=== PATIENT | male | born 1950 | race Caucasian/White ===

== ENCOUNTER → 2018-05-22 | Outpatient (REF) | payer MEDICARE, BC, OTHER ==
[2018-05-22 14:18] LABS: FREE T4 0.91 NG/DL (0.76-1.46); RHEUMATOID FACTOR QUANT < 10.0 IU/ML (<15.0); TOTAL PROTEIN 7.3 GM/DL (6.4-8.2)
[2018-05-22 14:19] LABS: ERYTHROCYTE SEDIMENTATION RATE 5 mm/hr (0-20)
[2018-05-22 14:27] LABS: ESTIMATED AVERAGE GLUCOSE 137 MG/DL (60-110); HEMOGLOBIN A1c 6.4 %
[2018-05-22 17:42] LABS: FOLATE 16.8 NG/ML
[2018-05-23 15:17] LABS: ALBUMIN 4.35 GM/DL (3.29-5.55); ALBUMIN % 59.6 % (55.8-66.1); ALPHA-1-GLOBULIN % 4.4 % (2.9-4.9); ALPHA-1-GLOBULINS 0.32 GM/DL (0.17-0.41); ALPHA-2-GLOBULINS 0.85 GM/DL (0.42-0.99); ALPHA-2-GLOBULINS % 11.7 % (7.1-11.8); BETA-1-GLOBULINS 0.47 GM/DL (0.28-0.60); BETA-1-GLOBULINS % 6.4 % (4.7-7.2); BETA-2-GLOBULINS 0.42 GM/DL (0.19-0.55); BETA-2-GLOBULINS % 5.8 % (3.2-6.5); GAMMA GLOBULIN % 12.1 % (11.1-18.8); GAMMA GLOBULINS 0.88 GM/DL (0.65-1.58)
[2018-05-25 08:42] LABS: VITAMIN E(ALPHA TOCOPHEROL) 7.2 mg/L (9.0-29.0); VITAMIN E(GAMMA TOCOPHEROL) 1.7 mg/L (0.5-4.9)
[2018-05-25 14:11] LABS: ANTI THROMBIN 3 ANTIGEN IMMUNO 111 % (72-124); ANTI THROMBIN 3 FUNCT ACTIVITY 105 % (75-135); ANTINUCLEAR ANTIBODIES DIRECT Negative (Negative); PROTEIN C FUNCTIONAL ACTIVITY 120 % (73-180); PROTEIN S FUNCTIONAL ACTIVITY 98 % (63-140); VITAMIN B1 LEVEL WHOLE BLOOD 118.9 nmol/L (66.5-200.0); VITAMIN B6,PYRIDOXAL PHOSPHATE 8.3 ug/L (5.3-46.7)
[2018-05-28 10:25] LABS: DRVV SCREEN 38.8 SEC
[2018-05-28 10:32] LABS: PTT LUPUS TYPE ANTICOAG SCREEN 0.9 (0-1.2)
== END ==
LOC: M LABNEURO 09:01
DX: I63.9 Cerebral infarction, unspecified (principal); G62.9 Polyneuropathy, unspecified
CPT/HCPCS: 82746